=== PATIENT | male | born 1990 | race African-American/Black ===

== ENCOUNTER 2020-03-16 22:57 | Emergency (ER) | payer OTHER ==
[~2020-03-16] VITALS: Ht 190.5 cm; Wt 88.5 kg
[2020-03-16 23:31] LABS: URINE BLOOD NEGATIVE (Negative); URINE CLARITY CLEAR; URINE COLOR YELLOW; URINE GLUCOSE-RANDOM NEGATIVE (Negative); URINE KETONES 1+ (Negative); URINE LEUKOCYTES-REFLEX TRACE (Negative); URINE NITRITE-REFLEX NEGATIVE (Negative); URINE PROTEIN NEGATIVE (Negative)
[2020-03-16 23:33] LABS: ICTOTEST (BILI CONFIRMATORY) Negative (Negative); URINE BILIRUBIN 1+ (Negative)
[2020-03-16 23:55] LABS: CASTS None Seen /LPF (None Seen); MUCUS 4-6 Moderate strn/LPF (None Seen); SQUAMOUS 0-3 Few /LPF (0-3); URINE RBC None Seen /HPF (0-2); WBC CLUMPS Few (None Seen)
[2020-03-16 23:56] LABS: CRYSTALS None Seen /LPF (None Seen)
[2020-03-17] MEDS ORDERED: CIPROFLOXACIN500 M1 PO (00:07)
[2020-03-17] MEDS ORDERED: NAPROSYN500 MG PO (00:07)
[2020-03-17] MEDS ORDERED: ACETAMINOPHEN-1 EAC2 PO (00:07)
[2020-03-17 00:28] VITALS: BP 138/65
== END 2020-03-17 00:28 | disposition home or self-care (01) ==
LOC: M.ERS 22:57
PROVIDERS: Personal Emergency Response Attendant
DX: N39.0 Urinary tract infection, site not specified (principal); F17.210 Nicotine dependence, cigarettes, uncomplicated

== ENCOUNTER 2020-03-20 19:01 | Emergency (ER) | payer OTHER ==
[~2020-03-20] VITALS: Ht 190.5 cm; Wt 86.2 kg
[~2020-03-20 19:01] MED LIST: ACETAMINOPHEN-1 EAC2 PO; CIPROFLOXACIN500 M1 PO; NAPROSYN500 MG PO
[2020-03-20] MEDS ORDERED: IBU600 MG PO (20:32)
[2020-03-20] MEDS ORDERED: BACLOFEN5 MG PO (20:32)
[2020-03-20] MEDS ORDERED: PREDNISONE50 MG PO (20:32)
[2020-03-20 20:44] VITALS: BP 127/58
== END 2020-03-20 20:44 | disposition home or self-care (01) ==
LOC: M.ERS 19:01
DX: M54.32 Sciatica, left side (principal); F17.210 Nicotine dependence, cigarettes, uncomplicated

== ENCOUNTER 2021-01-13 09:27 | Emergency (ER) | payer OTHER ==
[~2021-01-13] VITALS: Ht 190.5 cm; Wt 86.2 kg
[~2021-01-13 09:27] MED LIST changes: +BACLOFEN5 MG PO; +IBU600 MG PO; +PREDNISONE50 MG PO
[2021-01-13] MEDS ORDERED: PREDNISONE 10 M10 M1 PO (10:14)
[2021-01-13] MEDS ORDERED: DIPHENHIST50 MG PO (10:14)
[2021-01-13] MEDS ORDERED: EPIPEN 2-P0.3 MG/0.3 IM (10:14)
[2021-01-13 10:28] VITALS: BP 116/62
== END 2021-01-13 10:30 | disposition home or self-care (01) ==
LOC: M.ERS 09:27
DX: T78.49XA Other allergy, initial encounter (principal); F17.210 Nicotine dependence, cigarettes, uncomplicated; X58.XXXA Exposure to other specified factors, initial encounter